=== PATIENT | female | born 1965 | race Caucasian/White ===

== ENCOUNTER → 2025-02-11 13:49 | Outpatient (REF) | payer OTHER, SELFPAY | LOC: DHSLP 13:49 | PROVIDERS: ATTENDING PHYSICIAN Internal Medicine Critical Care Medicine; FAMILY PHYSICIAN Family Medicine | DX: G47.33 Obstructive sleep apnea (adult) (pediatric) (principal); R06.83 Snoring; R09.02 Hypoxemia | CPT/HCPCS: 95800 ==